=== PATIENT | male | born 2000 | race Hispanic/Latino ===

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

== ENCOUNTER 2023-04-08 17:40 | Emergency (ER) | payer OTHER, SELFPAY ==
[2023-04-08 17:59] VITALS: BP 108/59; PULSE 66; RESP 18; TEMP 36.4; O2SAT 97
--- NOTE | 2023-04-08 18:41 | ED.SKABFB ---
HPI - Skin/Abscess/Foreign Bdy General Chief complaint: Skin/Abscess/Foreign Body Stated complaint: bites to legs and shoulders Time Seen by Provider: 04/08/23 18:34 History of Present Illness HPI narrative: 22-year-old male reports for evaluation of itchy lesions to the back of his right leg, right side of his neck and left shoulder for 1 week. Patient states he thinks they are hives . Reports the lesions are itchy. Denies drainage, fever, body aches, chills, chest pain or shortness of breath, abdominal pain, nausea or vomiting. Related Data Allergies Allergy/AdvReac Type Severity Reaction Status Date / Time No Known Allergies Allergy Verified 11/24/21 18:20 Review of Systems Review of Systems: CONSTITUTIONAL: Denies fever, chills EYES: Denies visual changes, redness, or discharge. ENT: Denies rhinorrhea, congestion, sore throat, or otalgia. CARDIOVASCULAR: Denies chest pain, palpitations, or edema. RESPIRATORY: Denies cough or dyspnea. GASTROINTESTINAL: Denies abdominal pain, nausea, vomiting, or diarrhea. GENITOURINARY: Denies dysuria or hematuria. SKIN: See HPI MUSCULOSKELETAL: Denies back pain, joint pain, or myalgia. NEUROLOGIC: Denies headache, numbness, dizziness, or weakness. PSYCHIATRIC: Denies anxiety or depression. Exam Narrative: GENERAL: Well-appearing, in no acute distress. HEAD: Normocephalic NECK: Supple. CHEST: No respiratory distress. Clear to auscultation, no adventitious breath sounds. HEART: Regular rate and rhythm. No murmur heard. Normal peripheral pulses. EXTREMITIES: Normal range of motion. No edema. SKIN: 2 small erythematous papules to R hamstring, 1 on left shoulder, and 2 on right side of neck. No drainage, warmth, fluctuation or induration. No other lesions to remainder of skin. NEURO: No focal deficits. Alert and oriented x3. PSYCH: Normal mood and affect. Course Vital Signs Vital signs: Vital Signs Temperature 97.6 F 04/08/23 17:59 Pulse Rate 66 04/08/23 17:59 Respiratory Rate 18 04/08/23 17:59 Blood Pressure 108/59 L 04/08/23 17:59 Pulse Oximetry 97 04/08/23 17:59 Oxygen Delivery Room Air 04/08/23 17:59 Temperature 98.2 F 04/08/23 19:11 Pulse Rate 72 04/08/23 19:11 Respiratory Rate 16 04/08/23 19:11 Blood Pressure 117/68 04/08/23 19:11 Pulse Oximetry 100 04/08/23 19:11 Oxygen Delivery Room Air 04/08/23 17:59 MDM - Skin/Abscess/Foreign Bdy MDM Narrative Medical decision making narrative: 22-year-old male reports for evaluation of pruritic lesions to the back of his right leg, right side of his neck and left shoulder for 1 week. Vitals stable. Exam consistent with mosquito vs chigger bites. No secondary signs of infection. Hydrocortisone sent to pharmacy. Advised PCP follow up within the following week. Referral provided. Strict ED return precautions discussed. Pt agrees with the plan and verbalized understanding. Discharged in stable condition. Medical Records Attestation: I reviewed the patient's medical records. Lab Data Attestation: I reviewed the patient's lab results. Discharge Plan Discharge Clinical Impression: Bug bites Qualifiers: Encounter type: initial encounter Qualified Code(s): W57.XXXA - Bitten or stung by nonvenomous insect and other nonvenomous arthropods, initial encounter Patient Disposition: Home, Self-Care Condition: Stable Instructions: Antibiotic Form, Insect Bite or Sting (ED) Additional Instructions: Your evaluated emergency department for itchy bumps which are consistent with bug bites. I have sent a cream to the pharmacy, please apply this as directed. Please follow-up with the primary care provider referred you to within the following week for reevaluation. Return to the emergency department if you experience fever, body aches or chills, worsening rash or other concerning symptoms. Prescriptions: New hydrocortisone butyrate 0.1 % cream 1 applic topical BID PRN (Reason: it
[2023-04-08 19:11] VITALS: BP 117/68; PULSE 72; RESP 16; TEMP 36.8; O2SAT 100
== END 2023-04-08 19:12 | disposition home or self-care (01) ==
PROVIDERS: Emergency Provider Physician Assistant
DX: S70.361A Insect bite (nonvenomous), right thigh, initial encounter (principal); S40.262A Insect bite (nonvenomous) of left shoulder, initial encounter; S10.96XA Insect bite of unspecified part of neck, initial encounter; W57.XXXA Bitten or stung by nonvenomous insect and other nonvenomous arthropods, initial encounter
CPT/HCPCS: 99283

== ENCOUNTER 2023-12-30 12:22 | Emergency (ER) | payer SELFPAY ==
[2023-12-30 12:57] VITALS: BP 130/70; PULSE 77; RESP 14; TEMP 36.2; O2SAT 98
--- NOTE | 2023-12-30 13:36 | ED_ITS ---
HPI - URI/Sore Throat General Chief Complaint: Upper Respiratory Infection Stated Complaint: cough, congestion Time Seen by Provider: 12/30/23 13:31 Related Data Allergies Allergy/AdvReac Type Severity Reaction Status Date / Time No Known Allergies Allergy Verified 11/24/21 18:20 Course Course Emergency Course: Chart review performed. Patient here with cough, congestion for 4 days. Vital Signs Vital signs: Vital Signs Temperature 97.1 F L 12/30/23 12:57 Pulse Rate 77 12/30/23 12:57 Respiratory Rate 14 12/30/23 12:57 Blood Pressure 130/70 12/30/23 12:57 Pulse Oximetry 98 12/30/23 12:57 Oxygen Delivery Room Air 12/30/23 12:57 Temperature 97.1 F L 12/30/23 12:57 Pulse Rate 77 12/30/23 12:57 Respiratory Rate 14 12/30/23 12:57 Blood Pressure 130/70 12/30/23 12:57 Pulse Oximetry 98 12/30/23 12:57 Oxygen Delivery Room Air 12/30/23 12:57 Discharge Plan Discharge Prescriptions: No Action hydrocortisone butyrate 0.1 % cream 1 applic topical BID PRN (Reason: itching) Qty: 15 0RF Rx Instructions: Use no more than 2 weeks Follow-up/Referrals: PHYSICIAN,STATISTICAL MACHINE SERVICER [Primary Care Provider] -
--- NOTE | 2023-12-30 13:47 | ED.URI ---
HPI - URI/Sore Throat General Chief Complaint: Upper Respiratory Infection Stated Complaint: cough, congestion Time Seen by Provider: 12/30/23 13:31 Focused HPI: Avery is a 23-year-old male patient presenting to the ER today with complaints of cough, sneezing, and sore throat. He reports the symptoms started on Friday. He denies any known fever or chills. Denies any shortness of breath or chest pain. Denies any known sick contacts. General: Well-developed, well nourished, in no apparent distress Head: Normocephalic, atraumatic Eyes: Pupils equally round and reactive to light bilaterally, EOM intact, sclera and conjunctive clear, no discharge, lids normal Ears: TMs intact and clear, ear canals clear, no drainage, grossly hearing normal. Nose: Nares patent, green nasal discharge, mild inflammation, no sinus tenderness. Mouth: Oropharynx red without lesions or masses, good dentition, MMM. Neck: Supple, trachea midline, no enlargement of anterior or posterior cervical nodes, no thyroid masses or goiter palpable. Cardio: Regular rate and rhythm, s1 and s2 normal, no murmur appreciated. Resp: Clear to auscultation bilaterally anteriorly and posteriorly, no rhonchi, rales, wheezing or rubs Patient screened in triage and initial orders placed. COVID, RSV, flu, and strep test was performed. Additional care and disposition to be based upon diagnostic testing and treatment. Related Data Allergies Allergy/AdvReac Type Severity Reaction Status Date / Time No Known Allergies Allergy Verified 11/24/21 18:20 Review of Systems Review of Systems: Pertinent positives per HPI. Patient denies any fever, chills, rash, headache, visual changes, dizziness, shortness of breath, chest pain, palpitations, nausea, vomiting, diarrhea, constipation, abdominal pain, or any urinary issues. Exam Narrative: General: Well-developed, well nourished, in no apparent distress Head: Normocephalic, atraumatic Eyes: Pupils equally round and reactive to light bilaterally, EOM intact, sclera and conjunctive clear, no discharge, lids normal Ears: TMs intact and clear, ear canals clear, no drainage, grossly hearing normal. Nose: Nares patent, green nasal discharge, mild inflammation, no sinus tenderness. Mouth: Oropharynx red without lesions or masses, good dentition, MMM. Neck: Supple, trachea midline, no enlargement of anterior or posterior cervical nodes, no thyroid masses or goiter palpable. Cardio: Regular rate and rhythm, s1 and s2 normal, no murmur appreciated. Resp: Clear to auscultation bilaterally anteriorly and posteriorly, no rhonchi, rales, wheezing or rubs Course Vital Signs Vital signs: Vital Signs Temperature 36.2 C L 12/30/23 12:57 Pulse Rate 77 12/30/23 12:57 Respiratory Rate 14 12/30/23 12:57 Blood Pressure 130/70 12/30/23 12:57 Pulse Oximetry 98 12/30/23 12:57 Oxygen Delivery Room Air 12/30/23 12:57 Temperature 36.2 C L 12/30/23 12:57 Pulse Rate 77 12/30/23 12:57 Respiratory Rate 14 12/30/23 12:57 Blood Pressure 130/70 12/30/23 12:57 Pulse Oximetry 98 12/30/23 14:56 Oxygen Delivery Room Air 12/30/23 14:56 MDM - URI/Sore Throat MDM Narrative Medical decision making narrative: At the time of visit patient is resting comfortably on the exam table. Patient appears to be nontoxic. Labs: COVID, RSV, strep, and influenza testing was all negative Plan: I suspect patient has URI/pharyngitis/viral syndrome. Supportive measures were discussed with the patient and they voiced understanding discharge instructions and agrees to treatment plan. Return precautions reviewed Differential Diagnosis Differential diagnosis: Likely upper respiratory infection, otitis media, sinusitis, viral infection, bronchitis, influenza, pharyngitis and other (COVID) Lab Data Labs: Lab Results 12/30/23 Range/Units 13:53 Influenza A (RT-PCR) Negative (Negative) Influenza B (R
[2023-12-30 14:22] LABS: Strep Group A RT-PCR NOT DETECTED (Negative)
[2023-12-30 14:35] LABS: Influenza A QL RT-PCR Negative (Negative); Influenza B QL RT-PCR Negative (Negative); RSV RNA, RT-PCR Negative (Negative); SARS-CoV-2 RNA PCR Negative (Negative)
[2023-12-30 14:56] VITALS: O2SAT 98
== END 2023-12-30 15:17 | disposition home or self-care (01) ==
LOC: ANHED 15:08
PROVIDERS: Student in an Organized Health Care Education/Training Program; Emergency Provider Nurse Practitioner Family
DX: J06.9 Acute upper respiratory infection, unspecified (principal); J02.9 Acute pharyngitis, unspecified; Z20.822 Contact with and (suspected) exposure to COVID-19
CPT/HCPCS: 87637; 87651; 99283

== ENCOUNTER 2024-09-09 16:40 | Emergency (ER) | payer SELFPAY ==
[2024-09-09 16:50] VITALS: BP 110/63; PULSE 76; RESP 16; TEMP 37.1; O2SAT 100
--- NOTE | 2024-09-09 17:19 | ED.GENADULT ---
HPI - General Adult General Chief complaint: Nausea/Vomiting/Diarrhea Stated complaint: Diarrhea/Fever Time Seen by Provider: 09/09/24 17:20 Source: patient, RN notes reviewed and old records reviewed Mode of arrival: ambulatory Limitations: no limitations History of Present Illness HPI narrative: 23-year-old male presents to the [facility] with complaints of 42 history of intermittent cough, intermittent diarrhea. Denies fevers. Denies abdominal pain. No nausea or vomiting. No treatment prior to arrival Treatments prior to arrival: none Related Data Home Medications Medication Instructions Recorded Confirmed No Home Medications 09/09/24 09/09/24 Allergies Allergy/AdvReac Type Severity Reaction Status Date / Time No Known Allergies Allergy Verified 09/09/24 17:00 Review of Systems Review of Systems: All systems reviewed & are unremarkable except as noted in HPI and below Constitutional: Constitutional: Reports no additional constitutional complaints ENT: Reports system reviewed and no additional complaints, except as documented Cardiovascular: Cardiovascular: Reports no additional cardiovascular complaints, Denies chest pain and Denies dyspnea Respiratory: Respiratory: Reports as per HPI, Denies chest congestion, Reports cough and Denies dyspnea Gastrointestinal: Gastrointestinal: Reports as per HPI, Denies abdominal pain, Reports diarrhea, Denies nausea and Denies vomiting Musculoskeletal: Musculoskeletal: Reports no additional musculoskeletal complaints Integumentary/Breasts: Skin/Breast: Reports system reviewed and no additional complaints, except as docu PMFSH Comments At the time of my signature, I reviewed and agree with the nursing past medical, surgical, social, and family history. There is no relevant family history pertinent to the patient complaint. Exam Const: General: cooperative, healthy appearing, comfortable, no acute distress, well developed, alert and well nourished Nutritional Appearance: well nourished Orientation/consciousness: patient oriented x3 Limitations: no limitations HENMT: Head: normal to inspection Ears: hearing grossly normal bilaterally, external ears normal, TM's normal bilaterally, EAC's normal, mastoids normal and no periauricular adenopathy Face/Nose/Sinus: Normal external nose present, normal facial exam and face symmetric Face and sinus: normal facial exam and face symmetric Mouth: Yes Normal oral and palatal mucosa present, Yes lip normal and Yes tongue normal Throat: posterior oropharynx normal, tonsils normal, uvula midline and no uvular edema Eyes: General: appearance normal, both eyes and all related structures Alignment and Position: alignment normal Periorbital: periorbital findings normal Neck: Neck: normal visual inspection, full ROM, no lymphadenopathy and no meningeal signs Chest: Chest palpation & inspection: normal inspection of the chest Resp: Effort & Inspection: normal respiratory effort and able to speak in complete sentences Auscultation: clear to auscultation bilaterally, no crackles, no rales, no rhonchi and no wheezes Cardio: Rate: regular rate GI: GI Palp: No abdominal tenderness and Yes Soft to palpation Skin: General skin exam: normal color and no rashes or lesions noted Lesions: no lesions Rashes: no rashes Wounds: no wounds Neuro: General: patient oriented x3, gait normal, tone normal, moves all extremities and no meningeal signs Cognition (Neuro): normal cognition Speech: normal speech Gait exam (Neuro): Normal gait present Extrem: General: normal to inspection, full ROM, capillary refill normal and normal gait Psych: Appearance: grossly normal and well kempt Mental Status: mental status grossly normal Speech and movement: Normal speech and movement present and Clear speech present Affect: normal affect Attitude: cooperative Course Course Level of Care: Express Care Visit Vital Signs Vital signs: Vital Signs Temperature 98.7 F 09/09/24 16:50 Pulse Rate 76 09/09/24 16:50 Respiratory Rate 16 09/09/24 16:50 Blood Pressure 110/63 09/09/24 16:50 Pulse Oximetry 100 09/09/24 16:50 Oxygen Delivery Room Air 09/09/24 16:50 Temperature 98.7 F 09/09/24 16:50 Pulse Rate 76 09/09/24 16:50 Respiratory Rate 16 09/09/24 16:50 Blood Pressure 110/63 09/09/24 16:50 Pulse Oximetry 100 09/09/24 16:50 Oxygen Delivery Room Air 09/09/24 16:50 Reviewed Medical Decision Making MDM Narrative Medical decision making narrative: Patient sitting comfortably in exam room. Nontoxic, vitals stable. Patient in no acute distress Patient presents for intermittent cough and diarrhea Patient in no acute distress. No acute findings noted on exam. Flu and COVID negative Patient appropriate for outpatient treatment and. Patient is requesting a work note Discharge instructions reviewed with patient, as well as provided in writing per nursing staff. The instructions also include specific and strict return/GO TO THE ER as well as f/u information. All questions have been answered, and the patient deny any further questions with discharge and discharge plan. Some parts of this dictation were generated by voice recognition software and may contain typographical and/or grammatical inaccuracies. Differential Diagnosis Differential Diagnosis: URI, bronchitis, diarrhea Medical Records Medical records reviewed: Yes I reviewed the external patient's medical records. Vital Signs Vital Signs: Vital Signs Temperature 98.7 F 09/09/24 16:50 Pulse Rate 76 09/09/24 16:50 Respiratory Rate 16 09/09/24 16:50 Blood Pressure 110/63 09/09/24 16:50 Pulse Oximetry 100 09/09/24 16:50 Oxygen Delivery Room Air 09/09/24 16:50 Temperature 98.7 F 09/09/24 16:50 Pulse Rate 76 09/09/24 16:50 Respiratory Rate 16 09/09/24 16:50 Blood Pressure 110/63 09/09/24 16:50 Pulse Oximetry 100 09/09/24 16:50 Oxygen Delivery Room Air 09/09/24 16:50 Reviewed Lab Data Lab results reviewed: Yes I reviewed the patient's lab results. Labs: Lab Results 09/09/24 Range/Units 17:30 POC Influenza A Ag Negative (Negative) POC Influenza B Ag Negative (Negative) POC SARS CoV-2 Ag Negative (Negative) Reviewed Critical Care Time Critical Care Time Critical Care Time: No Discharge Plan Discharge Clinical Impression: Upper respiratory infection, viral, Diarrhea Patient Disposition: Home, Self-Care Condition: Stable Instructions: Antibiotic Form, Upper Respiratory Infection (ED), Acute Diarrhea (ED) Additional Instructions: Today your flu and COVID rapid test were negative in clinic Stay hydrated with plenty of water, Gatorade, Pedialyte, ice pops in Jell-O If you start having increased diarrhea is recommended you take Imodium which is [id number] Take Tylenol as needed for pain. You can alternate with Motrin. Symptoms continue or get worse follow-up with your primary care provider or go directly to the nearest emergency room Patient Language: Emirati Prescriptions: No Action No Home Medications Follow-up/Referrals: PHYSICIAN,TRUSS MAKER [Primary Care Provider] - Stand Alone Forms: Work/School Release IP Time of Disposition: 17:49
[2024-09-09 17:53] LABS: EDCOVIDSCREEN Negative (Negative); EDINFLUASCREEN Negative (Negative); EDINFLUBSCREEN Negative (Negative)
== END 2024-09-09 17:52 | disposition home or self-care (01) ==
PROVIDERS: Emergency Provider Nurse Practitioner
DX: J06.9 Acute upper respiratory infection, unspecified (principal); B97.89 Other viral agents as the cause of diseases classified elsewhere; R19.7 Diarrhea, unspecified; Z20.822 Contact with and (suspected) exposure to COVID-19
CPT/HCPCS: 87426; 87804; 99212; G0463

== ENCOUNTER 2025-01-11 17:57 | Emergency (ER) | payer SELFPAY ==
[2025-01-11 17:58] VITALS: BP 121/68; PULSE 81; RESP 16; TEMP 36.8; O2SAT 98
--- OUTSIDE RECORDS SUMMARY | 2025-01-11 18:14 | XMS_ITS | Clinical Summary ---
Author Organization [facility] Address [address] [place] [address] Care Team Providers Care Billet Heater Operator Name Role Phone Unknown, Provider Primary Care Provider Unavaila ble Source Comments [facility],non-owned Affiliates and Associated Physician Practices is amultiple site organization consisting of ambulatory clinics and hospital sitesin [place], [place], [place] and [place]. This disclosure is being madepursuant to the Care Everywhere program and may not contain all information available regarding this patient. Last updated 18.[facility] Allergies No known active allergies Medications * Be aware that medications may not be up to date on this document. Alwaysverify current medications with the patient. Medication Sig Dispensed Refills Start Date End Date Status ibuprofen (MOTRIN) 200 MG tablet Take 2 Tabs by mouth every 6 hours as needed for Pain 50 Tab 11/13/2016 Active Family History Relation Name Status Comments Father Alive Mother Alive Social History Tobacco Use Types Packs/Day Years Used Date Smoking Tobacco: Former Sex and Gender Information Value Date Recorded Sex Assigned at Not on file Gender Identity Not on file Sexual Orientation Not on file Last Filed Vital Signs Vital Sign Reading Time Taken Comments Blood Pressure 118/48 11/13/2016 4:58 PM ENGINEERING DOCUMENTATION SPECIALIST Pulse 80 11/13/2016 7:10 PM ENGINEERING DOCUMENTATION SPECIALIST Temperature 36.3 C (97.4 F) 11/13/2016 7:10 PM ENGINEERING DOCUMENTATION SPECIALIST Respiratory Rate 16 11/13/2016 7:10 PM ENGINEERING DOCUMENTATION SPECIALIST Oxygen Saturation 95% 11/13/2016 5:50 PM ENGINEERING DOCUMENTATION SPECIALIST Inhaled Oxygen Concentration - - Weight 49 kg (108 lb) 11/13/2016 4:58 PM ENGINEERING DOCUMENTATION SPECIALIST Height 165.1 cm (5' 5 ) 07/19/2016 12:12 PM CDT Body Mass Index - - Plan of Treatment Health Maintenance Due Date Last Done Comments HIV SCREENING 2017 HPV VACCINE (1 - Male 3-dose series) 2017 MENINGOCOCCAL (Group B) VACC INE SHARED DECISION-MAKING (1 of 2 - Standard) 2018 HEPATITIS C SCREENING 10/07/2020 DTAP/TDAP/TD VACCINES (1 - Tdap) 2021 HEPATITIS B VACCINE (1 of 3 - 19+ 3-dose series) 2021 COVID-19 VACCINE (1 - 2023-2 5 season) 2024 INFLUENZA VACCINE (#1) 2024 DEPRESSION SCREENING 10/27/2024 ZOSTER VACCINE (1 of 2) 2052 HIB VACCINE Aged Out No longer eligi ble based on patient's age to complete this topic MENINGOCOCCAL GROUPS A/C/Y/W VACCINE Aged Out No longer eligible b ased on patient's age to complete this topic PNEUMOCOCCAL VACCINE Aged Out No long er eligible based on patient's age to complete this topic Care Teams Billet Heater Operator Relationship Specialty Start Date End Date Unknown, Provider PCP - General 08/01/16
--- OUTSIDE RECORDS SUMMARY | 2025-01-11 21:36 | XMS_ITS | Clinical Summary ---
Author Organization [facility] Address [address] [place] [address] Care Team Providers Care Weather Reporter Name Role Phone Unknown, Provider Primary Care Provider Unavaila ble Source Comments [facility],non-owned Affiliates and Associated Physician Practices is amultiple site organization consisting of ambulatory clinics and hospital sitesin [place], [place], [place] and [place]. This disclosure is being madepursuant to the Care Everywhere program and may not contain all information available regarding this patient. Last updated 18.[facility] Allergies No known active allergies Medications * [...] Comments Blood Pressure 118/48 11/13/2016 4:58 PM HEALTH SANITARIAN Pulse 80 11/13/2016 7:10 PM HEALTH SANITARIAN Temperature 36.3 C (97.4 F) 11/13/2016 7:10 PM HEALTH SANITARIAN Respiratory Rate 16 11/13/2016 7:10 PM HEALTH SANITARIAN Oxygen Saturation 95% 11/13/2016 5:50 PM HEALTH SANITARIAN Inhaled Oxygen Concentration - - Weight 49 kg (108 lb) 11/13/2016 4:58 PM HEALTH SANITARIAN Height 165.1 cm (5' 5 ) 07/19/2016 [...] age to complete this topic Care Teams Weather Reporter Relationship Specialty Start Date End Date Unknown, Provider PCP - General 08/01/16
[2025-01-11 21:37] VITALS: BP 124/74; PULSE 90; RESP 16; O2SAT 98
[2025-01-11 21:52] LABS: Add Urine Microscopic? NO; Appearance Urine Clear (Clear); Bilirubin Urine Negative (Negative); Blood Urine Negative (Negative); Color Urine Yellow (Yellow); Glucose Urine UA Negative (Negative); Ketones Urine 1+ mg/dL (Negative); Leukocyte Esterase Ur Negative LEU/UL (Negative); Nitrate Urine Negative (Negative); Protein Urine Negative (Negative); Specific Grav Ur 1.014 (1.001-1.035); pH Urine 6.5 (5.0-9.0)
--- NOTE | 2025-01-11 22:06 | ED_ITS ---
HPI - Skin/Abscess/Foreign Bdy General Chief complaint: Skin/Abscess/Foreign Body Stated complaint: a rash or infection after being in water Time Seen by Provider: 01/11/25 21:20 Source: patient Mode of arrival: ambulatory Limitations: no limitations History of Present Illness HPI narrative: This is a 22-year-old male that presents to the emergency department for rash on his genitals. Noticed it this morning. Reports he went cave jumping a couple of days ago. He also reports he had a massage yesterday. Is unsure if this correlates or if he possibly has an STD. Denies dysuria. Related Data Home Medications ?Medication ?Instructions ?Recorded ?Confirmed ?Last Taken ?Type No Home Medications 09/09/24 09/09/24 Unknown History Allergies Allergy/AdvReac Type Severity Reaction Status Date / Time No Known Allergies Allergy Verified 09/09/24 17:00 Review of Systems Review of Systems: CONSTITUTIONAL: Denies fever GENITOURINARY: Denies dysuria or hematuria. SKIN: Reports rash All systems reviewed & are unremarkable except as noted in HPI and below PMFSH Past Medical History Medical History (Updated 01/12/25 @ 00:05 by Nadira Suarez PA-C) No active medical problems Social History Social History (Updated 01/11/25 @ 22:11 by Nadira Suarez PA-C) Substance use: never Exam Narrative: GENERAL: Well-appearing, well-nourished, and in no acute distress. HEAD: Normocephalic, atraumatic. EYES: EOMI. EXTREMITIES: Normal range of motion. No edema. SKIN: Warm, dry, no rash. NEURO: No focal deficits. Alert and oriented x3. PSYCH: Normal mood and affect MALE GENITAL: Fine papular rash on the penis. No other lesions noted. No urethral drainage Course Course Emergency Course: Patient updated on his workup and agrees with plan of care Vital Signs Vital signs: Vital Signs Temperature 98.3 F 01/11/25 17:58 Pulse Rate 81 01/11/25 17:58 Respiratory Rate 16 01/11/25 17:58 Blood Pressure 121/68 01/11/25 17:58 Pulse Oximetry 98 01/11/25 17:58 Temperature 98.3 F 01/11/25 17:58 Pulse Rate 90 01/11/25 21:37 Respiratory Rate 16 01/11/25 21:37 Blood Pressure 124/74 01/11/25 21:37 Pulse Oximetry 98 01/11/25 21:37 MDM - Skin/Abscess/Foreign Bdy MDM Narrative Medical decision making narrative: Patient presents to the ER for rash to the penis. Very small papules noted. No other lesions, no abnormal discharge. Urine without evidence of infection. Ch lamydia, gonorrhea Trichomonas are negative. Will be given follow-up with urology for further evaluation. He was given warnings to return to the ER Differential Diagnosis Differential diagnosis: Likely allergic reaction to drug and other (chlamydia, gonorrhea, trichomonas, folliculitis) Lab Data Labs: Lab Results 01/11/25 Range/Units 21:45 Urine Color Yellow (Yellow) Urine Appearance Clear (Clear) Urine pH 6.5 (5.0-9.0) Ur Specific [place] 1.014 (1.001-1.035) Urine Protein Negative (Negative) mg/dL Urine Glucose (UA) Negative (Negative) mg/dL Urine Ketones 1+ H (Negative) mg/dL Ur Blood (Man) Negative (Negative) Urine Nitrate Negative (Negative) Urine Bilirubin Negative (Negative) Urine Urobilinogen 1.0 (<2.0) mg/dL Leukocyte Esterase Rfl Negative (Negative) REGINALD/UL C. trachomatis (PCR) Not detected (NOT DETECTE) N. gonorrhoeae (PCR) Not detected (NOT DETECTE) T. vaginalis (PCR) Not detected (NOT DETECTE) Critical Care Time Critical Care Time Critical Care Time: No Discharge Plan Discharge Clinical Impression: Rash and nonspecific skin eruption Patient Disposition: Home, Self-Care Condition: Stable Instructions: Acute Rash (ED) Additional Instructions: Return to the emergency department if you experience fever, pain or burning with urination, or any other symptoms that are concerning to you. Follow up with urology Patient Language: Somali Prescriptions: No Action No Home Medications Follow-up/Referrals: Andreas Dias MD [Physician] - PHYSICIAN,SUPERVISOR ELECTRONICS INSPECTION [Primary Care Provider] -
[2025-01-11 23:12] LABS: Trichomonas Vag PCR NOT DETECTED (NOT DETECTE)
[2025-01-11 23:35] LABS: Chlamydia trachomatis NOT DETECTED (NOT DETECTE); Neisseria gonorrhoeae PCR NOT DETECTED (NOT DETECTE)
[2025-01-12 00:12] VITALS: BP 120/86; PULSE 82; RESP 18; O2SAT 100
== END 2025-01-12 00:13 | disposition home or self-care (01) ==
PROVIDERS: Emergency Provider Physician Assistant
DX: R21 Rash and other nonspecific skin eruption (principal)
CPT/HCPCS: 81003; 87491; 87591; 87661; 99283